=== PATIENT | female | born 1960 | race Caucasian/White ===

== ENCOUNTER 2016-11-16 13:09 | Emergency (ER) | payer BC ==
[2016-11-16] MEDS ORDERED: IBUPROFEN 600 MG TABLET (FP) PO ONE (13:13)
[2016-11-16 13:14] VITALS: BP 157/88; PULSE 74; TEMP 98.2; BMI 32.7
--- NOTE | 2016-11-16 13:15 | PDOC ---
History of Present Illness - General Chief Complaint: Burn Stated Complaint: BURN Time Seen by Provider: 11/16/16 13:10 History Source: Patient Exam Limitations: No Limitations - History of Present Illness Initial Comments: 11/16/16 13:12 This is a 56 yo RHD F presenting to the ER with a complaint of burn Pt states she was removing a narvaez with boiling water Somehow, the narvaez got stuck? and turned over The hot water spilled out onto her left forearm Pt states she was wearing an apron and had her sleeve pulled down over the right arm No other traumatic injury 11/16/16 13:15 PMH: pt states she has none PSH: "a long time ago" Meds: aspirin ALL: NKDA Social: denies drug or cigarette use GENERAL/CONSTITUTIONAL: No: fever, chills, weakness, loss of appetite. MUSCULOSKELETAL: No: back pain, neck pain, joint pain, muscle swelling or pain SKIN: Yes: burn No: lesions, pallor, rash or easy bruising. GENERAL: The patient is in no acute distress. HEAD: Normal with no signs of trauma. NEUROLOGICAL: Cranial nerves II through XII grossly intact. Normal speech. No focal neurological deficits. SKIN: (+) left forearm erythema 20 x 7 cm, 4 x 3 area with intact blister Past History - Past Medical History Allergies/Adverse Reactions: Allergies Allergy/AdvReac Type Severity Reaction Status Date / Time No Known Allergies Allergy Verified 11/16/16 13:10 Home Medications: Ambulatory Orders Aspirin [ASA -] 81 mg PO DAILY 11/16/16 Ibuprofen [Motrin -] 600 mg PO TID #21 tablet 11/16/16 Medical Decision Making - Medical Decision Making 11/16/16 13:19 Pt s/p scald injury Will give motrin for pain Will apply silvadene Will ask pt to monitor for erythema Will ask that patient leve blister intact *DC/Admit/Observation/Transfer Diagnosis at time of Disposition: Scald of skin - Discharge Dispostion Disposition: HOME Condition at time of disposition: Stable Admit: No - Prescriptions Prescriptions: Ibuprofen [Motrin -] 600 mg PO TID #21 tablet - Patient Instructions Printed Discharge Instructions: How to Take Care of a Burn, DI for Hay Additional Instructions: Ms. Ramirez Thank you for coming in to the ER today Please keep your burn clean You can apply Neosporin to the area twice daily You should not open the blister, it will open on its own Please monitor for signs of infection (pus, increased redness around blister) Please follow up with your primary care physician in 3-4 days
[2016-11-16] MEDS ORDERED: SILVER SULFADIAZINE 1% TOP CREAM 50 GM JAR TP ONE (13:23)
== END 2016-11-16 14:12 | disposition home or self-care (01) ==
LOC: FER 13:09
PROC: 2W2DX4Z Dressing of Left Lower Arm using Bandage (ICD-10-PCS; principal; 2016-11-16)
DX: T22.232A Burn of second degree of left upper arm, initial encounter (principal); T31.0 Burns involving less than 10% of body surface; X12.XXXA Contact with other hot fluids, initial encounter; Y93.G3 Activity, cooking and baking; Y92.000 Kitchen of unspecified non-institutional (private) residence as the place of occurrence of the external cause
CPT/HCPCS: 99281-25

== ENCOUNTER 2017-09-19 15:15 | Emergency (ER) | payer BC ==
--- NOTE | 2017-09-19 15:32 | PDOC ---
History of Present Illness - General Chief Complaint: Wound Stated Complaint: WOUND CHECK RT FOOT SECOND TOE Time Seen by Provider: 09/19/17 15:20 History Source: Patient Exam Limitations: No Limitations - History of Present Illness Initial Comments: 09/19/17 15:30 57y F no known pmhx presents with complaint of laceration. Pt dropped a knife on her toe 2 days ago. It landed pointy side down over her R 2nd toe. Pt notes bleeding that stopped. they have been cleaning it with soapy water and putting neosprin over it. The pt denies any warmth, redness, swelling, bleeding, purulent discharge, fever/chills, numbnes/tingling/weakness. pt came today because her daugther found out about it and brought her to be evaluated. unclear last tetanus shot Past History - Past Medical History Allergies/Adverse Reactions: Allergies Allergy/AdvReac Type Severity Reaction Status Date / Time No Known Allergies Allergy Verified 09/19/17 15:16 Home Medications: Ambulatory Orders NK [No Known Home Medication] 09/19/17 - Suicide/Smoking/Psychosocial Hx Smoking History: Never smoked Hx Alcohol Use: No Drug/Substance Use Hx: No Substance Use Type: None Review of Systems - Review of Systems Able to Perform ROS?: Yes Comments:: 09/19/17 15:39 Constitutional - no reported Fever, Chills, Abd/GI: no reported abd pain, nausea, vomiting, Musculskelatal - no reported back pain, joint swelling skin - +wound no reported bruising, erythema, rash neurological: no reported headache, numbness, focal weakness, tingling, ataxia, hematologic: no reported anemia, easy bruising, easy bleeding *Physical Exam - Physical Exam Comments: 09/19/17 15:40 GENERAL: The patient is awake, alert, and fully oriented, Nontoxic - in no acute distress. EXTREMITIES: 2cm laceration over dorsum of L 2nd toe, exit wound on the medial aspect of 2nd toe, no erythema, warmth, discharge, bleeding, motor function intact on toe, sensatin intact throughout ED Treatment Course - RADIOLOGY Radiology Studies Ordered: Category Date Time Status FOOT-RIGHT [RAD] Stat Radiology 09/19/17 15:30 Ordered Medical Decision Making - Medical Decision Making 09/19/17 15:41 clean laceration from knife falling from 2 days ago no signs of infection outside window of closure will obtain xray to r/o fx 09/19/17 16:04 n ofracture or fb seen present on xray supportive care at home I discussed the physical exam findings, ancillary test results and final diagnoses with the patient. I answered all of the patient's questions. The patient was satisfied with the care received and felt comfortable with the discharge plan and treatment plan. The patient will call their primary care physician within 24 hours to arrange follow-up and will return to the Emergency Department with any new, persistent or worsening symptoms. *DC/Admit/Observation/Transfer Diagnosis at time of Disposition: Open wound of toe without complication Qualifiers: Encounter type: initial encounter Qualified Code(s): S91.109A - Unspecified open wound of unspecified toe(s) without damage to nail, initial encounter - Discharge Dispostion Disposition: HOME Condition at time of disposition: Improved Admit: No - Referrals Referrals: Juan Escobar MD [Staff Physician] - - Patient Instructions Printed Discharge Instructions: DI for Puncture Wound Additional Instructions: Return to the emergency department immediately with ANY new, persistent or worsening symptoms. Continue to clean the wound gently with soap and water, apply bacitracin. If you have fevers, chills, redness, swelling, purulent drainage or other concerns return to the ER immediately or see her primary care doctor. You MUST call and follow up with your doctor tomorrow for further evaluation of your symptoms. Results were discussed with you. Please make sure your doctor reviews the results of your emergency evaluation. Print Language: YORUBA - Post Discharge Activity
[2017-09-19 15:35] VITALS: BP 112/77; PULSE 78; TEMP 98.2; BMI 33.8
[2017-09-19] MEDS ORDERED: DIPHTH,PERTUSS(ACELL),TET VAC 0.5 ML VIAL IM ONE (15:38)
== END 2017-09-19 16:27 | disposition home or self-care (01) ==
LOC: FER 15:15
PROC: 3E0234Z Introduction of Serum, Toxoid and Vaccine into Muscle, Percutaneous Approach (ICD-10-PCS; principal; 2017-09-19)
DX: S91.109A Unspecified open wound of unspecified toe(s) without damage to nail, initial encounter (principal); X58.XXXA Exposure to other specified factors, initial encounter; Y93.89 Activity, other specified; Y92.9 Unspecified place or not applicable
CPT/HCPCS: 73630-TC-RT; 99281-25